=== PATIENT | male | born 1945 | race Caucasian/White ===

== ENCOUNTER 2017-12-20 16:34 | Inpatient (IN) | payer MEDICARE, SELFPAY ==
[2017-12-20] VITALS (22 sets, daily range): BP systolic 115–193; BP diastolic 72–114; PULSE 55–78; RESP 11–20; TEMP 36.1–36.7; O2SAT 94–100; BMI 28.2; BMI 27.9
--- NOTE | 2017-12-20 16:44 | EKG12_ITS ---
Test Reason : CP Blood Pressure : / mmHG Vent. Rate : 078 BPM Atrial Rate : 078 BPM P-R Int : 170 ms QRS Dur : 094 ms QT Int : 390 ms P-R-T Axes : 053 -31 085 degrees QTc Int : 444 ms Sinus rhythm with marked sinus arrhythmia Possible Left atrial enlargement Left axis deviation Inferior-posterior infarct , age undetermined Abnormal ECG Confirmed by ALICE STEELE ([id number]), film editor supervisor ADELE ROBERTSON ([id number]) on 12/27/2017 2:08:38 PM Referred By: HARDEEP/STACIE Confirmed By:ALICE STEELE
[2017-12-20 16:58] LABS: Absolute Lymphocyte Count 1.24 X10^3/ul (0.83-4.51); Absolute Neutrophil Count 6.2 X10^3/uL (2.0-7.7); Basophil# 0.02 X10^3/uL; Basophil% 0.2 % (0-1); Eosinophil# 0.06 X10^3/uL; Eosinophils% 0.7 % (0-5); Hematocrit 49.3 % (40-54); Hemoglobin 16.7 g/dl (13.0-16.5); Lymphocyte # 1.24 X10^3/ul (4.0); Lymphocyte % 14.9 % (19-41); Mean Corp Hgb Conc 33.9 g/gl (32-36); Mean Corpuscular Hgb 30.8 pg (27.0-32.0); Mean Corpuscular Volume 90.8 fL (80-94); Mean Platelet Vol. 10.7 fl (6.2-12.0); Monocyte# 0.86 X10^3/uL; Monocyte% 10.3 % (0-10); Neutrophil # 6.15 X10^3/uL (2.7-7.7); Neutrophil % 73.8 % (47-70); Platelet Count 197 K/mm3 (150-450); RBC Distribution Width SD 42.9 fl (35.1-43.9); Red Blood Count 5.43 M/mm3 (4.6-6.2); White Blood Count 8.3 K/mm3 (4.4-11.0)
[2017-12-20 17:14] LABS: POSITIVE COUNT NO; POSITIVE DIFFERENTIAL NO; POSITIVE MORPHOLOGY NO
[2017-12-20 17:16] LABS: Anion Gap 8 (5-15); BUN 22 mg/dL (7-18); BUN/Creat Ratio 14.2 RATIO (10-20); Calcium,Total 9.1 mg/dL (8.5-10.1); Chloride 108 mmol/L (98-107); Creatinine, Serum 1.55 mg/dL (0.70-1.30); EST Glomerular Filtration Rate 47 mL/min (>60); Est Glom Filt Rate - Afr Amer 57 mL/min (>60); Glucose 94 mg/dL (74-106); Potassium 4.2 mmol/L (3.5-5.1); Sodium Level 137 mmol/L (136-145)
--- NOTE | 2017-12-20 17:28 | ED.RN ---
trop 1.82 called from the lab. dr olmedo aware
[2017-12-20] MEDS: Aspirin 81 MG TAB.CHEW 324 MG PO (17:51)
--- NOTE | 2017-12-20 18:00 | PCM.HP.STD ---
<Manuela Mujica - Last Filed: 12/20/17 18:31> Problem List (1) Hypertension Status: Chronic (2) Malnutrition Status: Resolved (3) Hyperlipidemia Status: Chronic (4) Anemia Status: Resolved (5) Coronary artery disease Status: Chronic (6) Lumbar disc disease Status: Chronic (7) Major depression Status: Chronic (8) Chronic infection of right knee Status: Chronic History of Present Illness Date of Admission: 12/20/17 Chief Complaint: Chest pain. The patient is a 72 year old M who presents emergency room due to chest pain. Patient states chest pain began this morning with radiation to left arm and left shoulder blade. He denies associated dizziness, shortness of breath, diaphoresis, nausea. Patient states his symptoms felt similar to previous ID requiring CABG. Patient does not follow with cardiology. He reports previous CABG and stents. His most recent intervention was CABG in approximately 2008 at [place]. He has not followed with medication regimen or outpatient cardiology follow-up since that time. He states he has had routine testing prior to orthopedic surgery since that time which is reported to be normal. He has a past medical history of chronic right knee infection status post right zkbfs-mjv-oztg amputation, hypertension, hyperlipidemia, lumbar disc disease, depression, and CAD status post CABG as previously noted. Past Medical History Past Medical History (Chronic Problems): Chronic Problems Hypertension (Chronic) Hyperlipidemia (Chronic) Coronary artery disease (Chronic) Lumbar disc disease (Chronic) Major depression (Chronic) Chronic infection of right knee (Chronic) Allergies No Known Allergies Allergy (Verified 11/25/15 13:03) Home Medications: Ambulatory Orders Medication Instructions Recorded Lisinopril [Zestril] 10 mg PO DAILY 12/20/17 Metoprolol Tartrate 25 mg PO BID 12/20/17 Surgical History: coronary bypass surgery - 2008, - - L5 Diskectomy 1985. Right total knee arthroplasty. Right above-knee amputation. Psychiatric History: Depression Lives: With Family - With 87-year-old mother Smoking Status: Current every day smoker - Half pack per day Tobacco Use: Cigarettes Alcohol: None Drugs: None - *Family History Maternal History Items: No pertinent history Paternal History Items: Heart Disease Review of Systems Constitutional: Denies: Chills, Fever, Weight Change HEENT: Denies: Head Aches, Sinus Congestion, Sinus Drainage Cardiovascular: Reports: Chest Pain, Chest Pressure. Denies: Edema, Light Headedness, Palpitations, Syncope Respiratory: Denies: Cough, Shortness of breath at rest, Sputum production Gastrointestinal: Denies: Abdominal Pain, Nausea, Vomiting Genitourinary: Denies: Dysuria Musculoskeletal: Reports: - - Right rszwj-gnn-bkkp amputation with prosthesis. Denies: Joint Pain, Joint Tenderness Skin: Denies: Rash, Wounds Neurological: Denies: Numbness, Tingling, Focal weakness Psychiatric: Reports: Depression Hematologic/ Lymphatic: Denies: Easy Bruising, Easy Bleeding VTE Information - Inpt Only VTE Present on Admission: No VTE Mechan Device Prophylaxis: None VTE Pharm Prophylaxis ordered?: Yes - Physical Exam General: Alert, Oriented x3, Cooperative, No apparent distress HEENT: Atraumatic, PERRLA, EOMI, Normocephalic Neck: Supple, No JVD, Negative Carotid Bruits Lungs: Clear to auscultation, Diminished Cardiovascular: Regular rate, Regular Rhythm, Normal S1, Normal S2, No murmurs Abdomen: Bowel Sounds Present, Soft, Non Tender, Non-Distended Extremities: No clubbing, No cyanosis, No edema, Capillary Refill Less than 3 Seconds Skin: No rashes, No breakdown Musculoskeletal: No Tenderness to Palpation of Joints or Extremities, - - Right lower extremity prosthesis status post botvy-rbk-ipwe amputation Neurological: Cranial nerves II-XII grossly intact, Neuro grossly intact Psych/Mental Status: Normal Affect, Appropriate Vital Signs Temp Pulse Resp BP Pulse Ox 97.0 F L 71 16 176/91 H 98 12/20/17 16:37 12/20/17 17:44 12/20/17 17:44 12/20/17 17:44 12/20/17 17:44 Oxygen Flow Rate (L/min) 2 Oxygen Delivery Method Nasal Cannula Weight: 226 lb Body Mass Index (BMI) 28.2 Laboratory Tests Past 24 Hrs 12/20/17 12/20/17 16:48 16:48 WBC 8.3 RBC 5.43 Hgb 16.7 H Hct 49.3 MCV 90.8 MCH 30.8 MCHC 33.9 RDW 13.0 RDW Differential 42.9 Plt Count 197 MPV 10.7 Immature Gran % (Auto) 0.100 Neut % (Auto) 73.8 H Lymph % (Auto) 14.9 L Clarke % (Auto) 10.3 H Eos % (Auto) 0.7 Baso % (Auto) 0.2 Absolute Neuts (auto) 6.2 Absolute Lymphs (auto) 1.24 Total Counted Not Reportable Sodium 137 Potassium 4.2 Chloride 108 H Carbon Dioxide 21.0 Anion Gap 8 BUN 22 H Creatinine 1.55 H Estim Creat Clear Calc 53.00 Est GFR (MDRD) Af Amer 57 L Est GFR (MDRD) Non-Af 47 L BUN/Creatinine Ratio 14.2 Glucose 94 Calcium 9.1 Troponin I 1.820 H* Assessment/Plan All Active Problems Anemia (Resolved) Malnutrition (Resolved) 1. Chest pain/NSTEMI-initial troponin 1.8. Trend enzymes. Chest x-ray on admission showed no acute process. EKG sinus rhythm with no acute changes. Cardiology consulted from the ED. Placed on nitro drip. Given Plavix and aspirin. Plan for cardiac catheterization tomorrow. Repeat EKG with new onset or increased chest pain. 2. CAD status post CABG/PCI-not on aspirin, statin. 3. Hypertension-continue home lisinopril and metoprolol regimen. As needed labetalol for systolic greater than 160. 4. Hyperlipidemia-not on statin. Check fasting lipid panel in a.m. 5. Chronic infection of right knee status post-status post isjdf-qta-hito amputation with Dr. Chavez 03/04. 6. Chronic kidney disease stage III-creatinine at baseline. Continue to monitor. 7. Depression-not on home regimen. DVT prophylaxis-Lovenox sc. The patient was seen by TERRI Marin under the supervision of Dr. Gandara. <Rick Gandara F - Last Filed: 12/20/17 19:49> History of Present Illness The patient is a 72 year old M [] Past Medical History Allergies No Known Allergies Allergy (Verified 11/25/15 13:03) - Physical Exam Vital Signs Temp Pulse Resp BP Pulse Ox 98.0 F 68 20 H 163/105 H 100 12/20/17 18:45 12/20/17 19:12 12/20/17 19:00 12/20/17 19:00 12/20/17 19:00 Oxygen Flow Rate (L/min) 2 Oxygen Delivery Method Room Air Weight: 224 lb 10.417 oz Body Mass Index (BMI) 27.9 Assessment/Plan Addendum: Dr. Gandara I personally examined the patient and reviewed the chart. I agree with the above. Mr. De La Fuente is a 72-year-old male with a past medical history significant for coronary artery disease status post CABG and stent, hypertension, hyperlipidemia, right AKA, chronic kidney disease stage III. He presents with a one-day history of chest pain radiating to his left arm. In the ER he was found to have an elevated troponin of 1.8 with an unchanged baseline EKG. The ER discussed the case with cardiology who plans on a cardiac catheterization tomorrow. He was placed on a nitro drip for his chest pain in the ER as well as given a loading dose of Plavix and aspirin and a 1 mg/kg Lovenox. General: Alert, Oriented x3, Cooperative, No apparent distress HEENT: Atraumatic, EOMI, Normocephalic Oral: Moist Mucosa Neck: Supple, No JVD Lungs: Clear to auscultation, Normal air movement, No rhonchi, No wheeze, No rales Cardiovascular: Regular rate, Regular Rhythm, Normal S1, Normal S2, No murmurs Abdomen: Soft, Non Tender, Non-Distended, No Hepato-splenomegaly Extremities: No edema, Capillary Refill Less than 3 Seconds, RLE AKA Skin: No rashes, No breakdown Psych/Mental Status: Normal Affect, Appropriate 1. NSTEMI/CAD s/p stent and CABG at [place]/HTN/HLD - Troponin elevated to 1.8, will obtain serial enzymes - Nitro drip for pain - Plavix 300 mg Aspirin 325 mg , and lovenox 1mg/kg x1 tonight - Plan for cath in the am and NPO prior to procedure - Will need a statin prior to DC 2. CKD 3 - Will hold his lisinopril in the am since he will be receiving contrast - If no increase after the procedure, can restart lisinopril Diet: Cardiac then NPO DVT: Lovenox x1 Code Visit Inpatient E&M: 79728 Init Hosp L3
[2017-12-20] MEDS: Nitroglycerin Oint 1 INCH PACKET TRANSDERM. (18:05)
--- NOTE | 2017-12-20 18:05 | ED.VISSUMM ---
- ER Visit Summary Date of Service: 12/20/17 Chief Complaint: Acute chest pain History of Present Illness: The patient is a 72 M he was stents. Prior double bypass surgery and 2007 at [facility]. Patient has not had any stents since that time. Today he had chest pain midsternal radiating to his left arm at times. He denies any shortness of breath, nausea or diaphoresis. He really denies any significant recent exertional chest pain. He is not on any type of anticoagulation. Nor aspirin. Physical Examination: Well-appearing older male. Vital signs initial blood pressure 154 114. His pulse ox is 98% on 2 L no hypoxia. HEENT exam unremarkable. Neck nontender. Lungs clear to auscultation bilaterally. Heart regular rate and rhythm no murmur. Chest wall nontender. Abdomen soft nontender. He is moving all 4 extremities. Neurovascular intact. He has a right qbwip-qxs-ntyo at amputation with a prosthesis. Neurologically is awake alert with no focal motor deficits. Test Results: Chest x-ray normal cardiac silhouette normal mediastinum. Prior sternotomy. EKG sinus rhythm chronic changes but no acute change from the prior EKG from February 2017. CBC unremarkable. Chemistries unremarkable other than chronic renal insufficiency creatinine 1.5. Troponin is elevated at 1.82. Emergency Department Course and Treatment: Patient's history is consistent with cardiac chest pain. Going along with his elevated troponin. I spoke to Dr. Bhavin Eaton of interventional cardiology. Patient be started on nitro drip. Given p.o. Plavix. And aspirin. I also spoke to the hospitalist and he and Dr. Eaton will discuss further anticoagulation due to the patient's renal insufficiency. The patient be set up for cardiac catheterization for tomorrow. Treatment Plan: [] Disposition: Admit to the PCU. Impression: Acute chest pain with elevated troponin Acute coronary syndrome This note was generated with [employer] dictation software. It may contain incorrect words, spelling, and punctuation that were not noted in review of the chart prior to signing ED Disposition - Plan for ED Patient: Chief Complaint: Chest Pain Referrals: Capri Arita MD [Primary Care Provider] -
--- NOTE | 2017-12-20 18:11 | ED.DCSUM_ITS ---
- ER Visit Summary Date of Service: 12/20/17 Chief Complaint: Acute chest pain History of Present Illness: The patient is a 72 M he was stents. Prior double bypass surgery and 2007 at [facility]. Patient has not had any stents since that time. Today he had chest pain midsternal radiating to his left arm at times. He denies any shortness of breath, nausea or diaphoresis. He really denies any significant recent exertional chest pain. He is not on any type of anticoagulation. Nor aspirin. Physical Examination: Well-appearing older male. Vital signs initial blood pressure 154 114. His pulse ox is 98% on 2 L no hypoxia. HEENT exam unremarkable. Neck nontender. Lungs clear to auscultation bilaterally. Heart regular rate and rhythm no murmur. Chest wall nontender. Abdomen soft nontender. He is moving all 4 extremities. Neurovascular intact. He has a right xsmdq-yls-thwe at amputation with a prosthesis. Neurologically is awake alert with no focal motor deficits. Test Results: Chest x-ray normal cardiac silhouette normal mediastinum. Prior sternotomy. EKG sinus rhythm chronic changes but no acute change from the prior EKG from February 2017. CBC unremarkable. Chemistries unremarkable other than chronic renal insufficiency creatinine 1.5. Troponin is elevated at 1.82. Emergency Department Course and Treatment: Patient's history is consistent with cardiac chest pain. Going along with his elevated troponin. I spoke to Dr. Bhavin Eaton of interventional cardiology. Patient be started on nitro drip. Given p.o. Plavix. And aspirin. I also spoke to the hospitalist and he and Dr. Eaton will discuss further anticoagulation due to the patient's renal insufficiency. The patient be set up for cardiac catheterization for tomorrow. Treatment Plan: [] Disposition: Admit to the PCU. Impression: Acute chest pain with elevated troponin Acute coronary syndrome This note was generated with [employer] dictation software. It may contain incorrect words, spelling, and punctuation that were not noted in review of the chart prior to signing ED Disposition - Plan for ED Patient: Chief Complaint: Chest Pain Referrals: Capri Arita MD [Primary Care Provider] -
[2017-12-20] MEDS: Clopidogrel Bisulfate 300 MG Tablet PO (18:52)
[2017-12-20] MEDS: 0.9% NaCl Peripheral Flush Adult/Peds IV (18:52)
[2017-12-20] MEDS: Enoxaparin 100 MG/ML Syringe SC (20:23)
[2017-12-20] MEDS: Metoprolol Tartrate 25 MG Tablet PO (22:37)
[2017-12-21] VITALS (46 sets, daily range): BP systolic 85–160; BP diastolic 42–79; PULSE 43–82; RESP 11–23; TEMP 36.4–36.7; O2SAT 94–99
[2017-12-21 02:26] LABS: Absolute Lymphocyte Count 1.22 X10^3/ul (0.83-4.51); Absolute Neutrophil Count 4.5 X10^3/uL (2.0-7.7); Basophil# 0.02 X10^3/uL; Basophil% 0.3 % (0-1); Eosinophil# 0.13 X10^3/uL; Hematocrit 43.9 % (40-54); Hemoglobin 14.7 g/dl (13.0-16.5); Lymphocyte # 1.22 X10^3/ul (4.0); Lymphocyte % 18.7 % (19-41); Mean Corp Hgb Conc 33.5 g/gl (32-36); Mean Corpuscular Hgb 30.5 pg (27.0-32.0); Mean Corpuscular Volume 91.1 fL (80-94); Mean Platelet Vol. 10.2 fl (6.2-12.0); Monocyte# 0.67 X10^3/uL; Monocyte% 10.3 % (0-10); Neutrophil # 4.49 X10^3/uL (2.7-7.7); Neutrophil % 68.7 % (47-70); Platelet Count 172 K/mm3 (150-450); RBC Distribution Width CV 13.1 % (11.6-14.6); RBC Distribution Width SD 43.4 fl (35.1-43.9); Red Blood Count 4.82 M/mm3 (4.6-6.2); White Blood Count 6.5 K/mm3 (4.4-11.0)
[2017-12-21 02:27] LABS: POSITIVE COUNT NO; POSITIVE DIFFERENTIAL NO; POSITIVE MORPHOLOGY NO
[2017-12-21 02:35] LABS: International Normalized Ratio 1.1; Prothrombin Time (Protime)PT. 13.7 SECONDS (11.7-14.9)
[2017-12-21 02:36] LABS: Partial Thromboplast Time 35.5 Seconds (24.1-36.2)
[2017-12-21 02:53] LABS: Anion Gap 9 (5-15); BUN 20 mg/dL (7-18); BUN/Creat Ratio 14.4 RATIO (10-20); Calcium,Total 8.5 mg/dL (8.5-10.1); Chloride 109 mmol/L (98-107); Creatinine, Serum 1.39 mg/dL (0.70-1.30); EST Glomerular Filtration Rate 54 mL/min (>60); Est Glom Filt Rate - Afr Amer 65 mL/min (>60); Glucose 114 mg/dL (74-106); Potassium 3.9 mmol/L (3.5-5.1); Sodium Level 140 mmol/L (136-145)
--- NOTE | 2017-12-21 05:55 | EKG12_ITS ---
Test Reason : AM EKG Blood Pressure : / mmHG Vent. Rate : 056 BPM Atrial Rate : 056 BPM P-R Int : 162 ms QRS Dur : 096 ms QT Int : 472 ms P-R-T Axes : 029 -28 017 degrees QTc Int : 455 ms Sinus bradycardia RSR' or QR pattern in V1 suggests right ventricular conduction delay Minimal voltage criteria for LVH, may be normal variant T wave abnormality, consider anterolateral ischemia Abnormal ECG When compared with ECG of 20-DEC-2017 16:41, MANUAL COMPARISON REQUIRED, DATA IS UNCONFIRMED Confirmed by ALICE STEELE ([id number]), social media editor ADELE ROBERTSON ([id number]) on 12/27/2017 3:15:40 PM Referred By: CHRIS Confirmed By:ALICE STEELE
[2017-12-21] MEDS: Aspirin 81 MG TAB.CHEW PO (06:24)
[2017-12-21] MEDS: Clopidogrel Bisulfate 75 MG Tablet PO (06:24)
[2017-12-21] MEDS: DiphenhydrAMINE 25 MG Capsule 50 MG PO (11:12)
--- NOTE | 2017-12-21 11:13 | CASEMGMT ---
This RN CM to room to complete CM assessment and pt is being taken to the heart clinical laboratory scientist at this time. Will attempt again later. Earlene NELSON CM
--- NOTE | 2017-12-21 11:20 | PCM.CONS.C ---
Problem List (1) Tobacco abuse Status: Acute (2) Unstable angina Status: Acute (3) Chest pain Status: Acute (4) Non-STEMI (non-ST elevated myocardial infarction) Status: Acute (5) Hypertension Status: Chronic (6) Hyperlipidemia Status: Chronic (7) Coronary artery disease Status: Chronic Reason for Consult Date of Consultation: 12/21/17 Reason for Consultation: Chest pain, non-STEMI, coronary disease, tobacco abuse, hypertension, hypercholesterolemia History of Present Illness: The patient is a 72 year old M, [id number] smoker, currently smoking, with a history of hypertension, hypercholesterolemia, peripheral vascular disease, coronary artery disease status post angioplasty and stenting of his left circumflex system by Dr. Bernard at [facility] in 2005, with subsequent poor medical compliance and that he stopped his Plavix with return to [facility] in 2008 with recurrent chest pain. At that time he was found to have multivessel coronary disease with in-stent stenosis, and was referred for bypass surgery. At that time he underwent bypass surgery with a free CARCAMO to the LAD, a free radial to the PDA, saphenous vein graft to the obtuse marginal, and saphenous vein graft to the distal right coronary artery. The patient's symptoms at that time were substernal chest pressure and chest burning which completely resolved after his bypass. Unfortunately the patient continues to smoke about 1 pack of cigarettes per day. In 2014 the patient required a knee replacement surgery at which time he had a stress test which apparently was negative. He has not had a repeat catheterization since his bypass surgery. He underwent knee replacement surgery upon [facility] with subsequent wound infection requiring right AKA amputation. Over the last several weeks he has had what he describes as indigestion which is his anginal equivalent. This culminated into significant chest pain last evening around 8 PM at which time he sought medical attention at [facility]. An EKG was performed which showed normal sinus rhythm with subtle anterolateral ST segment depression. His initial troponin was 1.82. His chest pain was relieved with sublingual nitroglycerin. He was also found to be significantly hypertensive. He was placed on a nitroglycerin drip, loaded with 300 mg of Plavix, and his peak troponin is now 18. He is remained chest pain-free overnight. Past Medical History Allergies/Adverse Reactions: Allergies No Known Allergies Allergy (Verified 11/25/15 13:03) Home Medications: Ambulatory Orders Medication Instructions Recorded Lisinopril [Zestril] 10 mg PO DAILY 12/20/17 Metoprolol Tartrate 25 mg PO BID 12/20/17 Past Medical History (Chronic Problems): Chronic Problems Hypertension (Chronic) Hyperlipidemia (Chronic) Coronary artery disease (Chronic) Lumbar disc disease (Chronic) Major depression (Chronic) Chronic infection of right knee (Chronic) Surgical History: coronary bypass surgery - 2008, - - L5 Diskectomy 1985. Right total knee arthroplasty. Right above-knee amputation. Psychiatric History: Depression - *Family History Maternal History Items: No pertinent history Paternal History Items: Heart Disease Lives: With Family - With 87-year-old mother Smoking Status: Current every day smoker Tobacco Use: Cigarettes Alcohol: None Drugs: None Review of Systems - Review of Systems General: Denies: Fever, Night Sweats, Fatigue Cardiovascular: Reports: Chest Discomfort, Chest Discomfort at Rest. Denies: Shortness of Breath, Orthopnea, PND, Peripheral Edema, Palpitations, Lightheadedness, Dizziness, Near Syncope, Syncope Respiratory: Denies: Cough, Sputum Production, Hemoptysis Gastrointestinal: Denies: Hematemesis, Hematochezia, Melena Genitourinary: Denies: Dysuria, Hematuria Skin: Denies: Rash Subjectve: Patient laying in bed, no acute distress. Objective: Vital Signs Temp Pulse Resp BP Pulse Ox 98.0 F 50 L 14 105/66 96 12/21/17 09:00 12/21/17 11:01 12/21/17 10:00 12/21/17 10:00 12/21/17 10:00 Oxygen Flow Rate (L/min) 2 Oxygen Delivery Method Room Air Weight: 224 lb 10.417 oz Body Mass Index (BMI) 27.9 Intake and Output for Last 24 Hours 12/19/17 12/20/17 12/21/17 23:59 23:59 23:59 Intake Total 240 / 240 240 / 240 Output Total 450 / 450 300 / 300 Balance -210 / -210 -60 / -60 General: Awake, Alert, Oriented x 3 HEENT: PERRL, EOMI, Sclera Non Icteric Neck: Supple, Good ROM, No Lymph Node Enlargement Lungs: Clear to auscultation Cardiovascular: Regular Rhythm, Normal S1, Normal S2, No Murmurs, No Rubs, No Gallops Vascular: No Carotid Bruits, Normal Femoral Pulses, Normal Radial Pulses, Normal Dorsalis Pedal Pulse, Normal Posterior Tibial Pulses Abdomen: Bowel Sounds Present, Soft, Non Tender, No HSM, No Organomegaly Extremities: No Cyanosis, No Clubbing, No edema Neurological: No Focal Motor or Sensory Deficit 12/20/17 20:00: Troponin I 6.810 H* 12/20/17 22:56: Troponin I 12.500 H* 12/21/17 02:05: WBC 6.5, RBC 4.82, Hgb 14.7, Hct 43.9, MCV 91.1, MCH 30.5, MCHC 33.5, RDW 13.1, RDW Differential 43.4, Plt Count 172, MPV 10.2, Immature Gran % (Auto) 0.000, Neut % (Auto) 68.7, Lymph % (Auto) 18.7 L, [place] % (Auto) 10.3 H, Eos % (Auto) 2.0, Baso % (Auto) 0.3, Absolute Neuts (auto) 4.5, Total Counted Not Reportable 12/21/17 02:05: Sodium 140, Potassium 3.9, Chloride 109 H, Carbon Dioxide 22.0, Anion Gap 9, BUN 20 H, Creatinine 1.39 H, Est GFR (MDRD) Af Amer 65, Est GFR (MDRD) Non-Af 54 L, BUN/Creatinine Ratio 14.4, Glucose 114 H, Calcium 8.5 12/21/17 02:05: Troponin I 17.200 H* 12/21/17 02:05: PT 13.7, INR 1.1, APTT 35.5 12/21/17 05:05: Troponin I 18.000 H* Rhythm: EKG: As above ECHO: Pending Stress Test: Cardiac Cath: Pending PCI: CT Surgery: Holter monitor: EPS: PPM: CXR: Chest CT Scan: Assessment/Plan 1. Non-STEMI: The patient presents with recurrent anginal symptoms, subtle dynamic EKG changes with anterolateral ischemia, positive troponin to 1.8 maximizing at 18.0. Patient had challenges with compliance with Plavix therapy in 2005 mostly due to cost issues, but he has pledged to continue dual antiplatelet therapy should this be necessary. I recommended the patient undergo repeat catheterization with graft angiography to determine if he has any reversible lesions that could benefit from intervention or angioplasty. Patient has an excellent right femoral pulse despite his right AKA which appear to be due to an infectious process anyhow. I believe we can proceed with left heart catheterization via the right femoral artery. In the meantime we will continue baby aspirin, Plavix, antihypertensive therapy with Lopressor 25 mg p.o. twice daily. 2D echo is pending. He was quite hypertensive when he came in last evening and to that and would recommend Hyzaar 25/12.5 mg p.o. daily to assist with diastolic hypertension. 2. Hyperlipidemia: Patient was on no antilipid therapy apparently at home, recommend obtaining a fasting lipid profile. Recommend starting Lipitor 80 mg p.o. nightly. His LDL should be less than 70. 3. Tobacco cessation: I had a long and thorough discussion with the patient regarding tobacco cessation and strongly recommended discontinuation of all tobacco products. 4. Thank you very much for the opportunity to participate in the cardiac care of your patient. Consultation time took place between 930 and 10:05 AM. Code Visit Inpatient E&M: 91062 Init Hosp L2
[2017-12-21 12:09] LABS: Cholesterol 172 mg/dL (200); High Density Lipoprotein 31 mg/dL; Triglycerides 146 mg/dL; Very Low Density Lipoprotein 29 mg/dL (5-40)
--- NOTE | 2017-12-21 12:47 | NURSING ---
report called to Keturah NELSON in ICU
--- NOTE | 2017-12-21 12:52 | PCM.PN.HOSP ---
Patient Problems: Active and Suspected Problems Tobacco abuse (Acute) Unstable angina (Acute) Chest pain (Acute) Non-STEMI (non-ST elevated myocardial infarction) (Acute) Subjective: Patient was seen and examined. He is status post cardiac cath with HARLAN to the mid OM #1, ballooning to ostial OM #1 for stent restenosis. Seen in ICU post cardiac cath. Denied any chest pain no dizziness or shortness of breath. Following post-cath procedures Objective: Physical Exam General: Alert, Oriented x3, Cooperative, No apparent distress HEENT: Atraumatic, PERRLA, EOMI, Normocephalic Neck: Supple, No JVD, Negative Carotid Bruits Lungs: Clear to auscultation, Diminished Cardiovascular: Regular rate, Regular Rhythm, Normal S1, Normal S2, No murmurs Abdomen: Bowel Sounds Present, Soft, Non Tender, Non-Distended, right groin catheter in situ, groin precautions ongoing Extremities: No clubbing, No cyanosis, No edema, Capillary Refill Less than 3 Seconds Skin: No rashes, No breakdown Musculoskeletal: No Tenderness to Palpation of Joints or Extremities, - - Right lower extremity prosthesis status post [id number] amputation Neurological: Cranial nerves II-XII grossly intact, Neuro grossly intact Psych/Mental Status: Normal Affect, Appropriate Vitals/I&O's: Vital Signs Temp Pulse Resp BP Pulse Ox 98.0 F 50 L 15 105/68 97 12/21/17 09:00 12/21/17 11:01 12/21/17 11:00 12/21/17 11:00 12/21/17 11:00 Oxygen Flow Rate (L/min) 2 Oxygen Delivery Method Room Air Weight: 101.9 kg Body Mass Index (BMI) 27.9 Intake and Output for Last 24 Hours 12/19/17 12/20/17 12/21/17 23:59 23:59 23:59 Intake Total 240 / 240 240 / 240 Output Total 450 / 450 300 / 300 Balance -210 / -210 -60 / -60 Laboratory Results 12/20/17 20:00: Troponin I 6.810 H* 12/20/17 22:56: Troponin I 12.500 H* 12/21/17 02:05: WBC 6.5, RBC 4.82, Hgb 14.7, Hct 43.9, MCV 91.1, MCH 30.5, MCHC 33.5, RDW 13.1, RDW Differential 43.4, Plt Count 172, MPV 10.2, Immature Gran % (Auto) 0.000, Neut % (Auto) 68.7, Lymph % (Auto) 18.7 L, Esmeralda % (Auto) 10.3 H, Eos % (Auto) 2.0, Baso % (Auto) 0.3, Absolute Neuts (auto) 4.5, Absolute Lymphs (auto) 1.22, Total Counted Not Reportable 12/21/17 02:05: Sodium 140, Potassium 3.9, Chloride 109 H, Carbon Dioxide 22.0, Anion Gap 9, BUN 20 H, Creatinine 1.39 H, Estim Creat Clear Calc 59.10, Est GFR (MDRD) Af Amer 65, Est GFR (MDRD) Non-Af 54 L, BUN/Creatinine Ratio 14.4, Glucose 114 H, Calcium 8.5 12/21/17 02:05: Troponin I 17.200 H* 12/21/17 02:05: PT 13.7, INR 1.1, APTT 35.5 12/21/17 05:05: Troponin I 18.000 H* 12/21/17 05:05: Triglycerides 146, Cholesterol 172, LDL Cholesterol 112, VLDL Cholesterol 29, HDL Cholesterol 31 L Current Medications Atorvastatin Calcium (Lipitor) 80 mg PO QHS [facility] Hydrochlorothiazide (Hydrochlorothiazide) 12.5 mg PO DAILY [facility] Nitroglycerin/Dextrose 25 mg/ (N/A) 250 mls @ 3 mls/hr IV .[id number] [facility] PRN Reason: 5 MCG/MIN Last Admin: 12/20/17 18:52 Dose: 3 mls/hr Sodium Chloride () 1,000 mls @ 0 mls/hr IV .Q0M ARNA[facility] PRN Reason: KVO Losartan Potassium (Cozaar) 50 mg PO DAILY [facility] Magnesium Hydroxide (Milk Of Magnesia) 30 ml PO DAILY PRN PRN Reason: Constipation Metoprolol Tartrate (Lopressor (Beta García)) 25 mg PO BID ARNA[facility] Last Admin: 12/21/17 11:01 Dose: Not Given Sodium Chloride () 5 - 30 ml IV UD PRN PRN Reason: SALINE FLUSH Last Admin: 12/20/17 18:52 Dose: 10 ml Medical Necessity - Tobacco Use Smoking Status: Current every day smoker Tobacco Use: Cigarettes Assessment/Plan All Active Problems Tobacco abuse (Acute) Unstable angina (Acute) Chest pain (Acute) Non-STEMI (non-ST elevated myocardial infarction) (Acute) Anemia (Resolved) Malnutrition (Resolved) 72-year-old male with past medical history of CAD status post CABG admitted on 12/20/2017 with chest pain radiating down his left arm and left shoulder, found to have NSTEMI 1. Acute NSTEMI, MARK score 6, history of CAD status post CABG and stent. Findings in cardiac cath today included patent grafts, 85% occlusion of the mid obtuse margin now #1 status post HARLAN, ostia OM #1 in-stent restenosis status post balloon angioplasty, on statin, aspirin, plavix 2. CKD stage III, Creatinine has been fluctuating, improved compared to admission and also close to his baseline, continue to trend BMP 3. Hypertension, controlled, continue home medication 4. Hyperlipidemia, lipid profile this morning showed triglycerides 146, total cholesterol 172, LDL 112, HDL 31, at goal. LDL not at goal, on atorvastatin 80 mg daily 5. PAD status post right AKA, on aspirin, Plavix, statin 6. Chronic smoker, advised to quit 7. DVT PPx- SCDs -will resume Lovenox from tomorrow Code Visit Inpatient E&M: 29309 Subs Hosp L2
[2017-12-21 13:00] LABS: ACT Activated Clotting Time 208 sec (74-137)
--- NOTE | 2017-12-21 13:31 | EKG12_ITS ---
Test Reason : POST PCI Blood Pressure : / mmHG Vent. Rate : 048 BPM Atrial Rate : 048 BPM P-R Int : 156 ms QRS Dur : 094 ms QT Int : 478 ms P-R-T Axes : 017 -35 064 degrees QTc Int : 427 ms Sinus bradycardia Left axis deviation ,LAHB T wave abnormality, consider anterior ischemia Abnormal ECG When compared with ECG of 21-DEC-2017 05:37, MANUAL COMPARISON REQUIRED, DATA IS UNCONFIRMED Confirmed by ALICE STEELE ([id number]), book or script editor ADELE ROBERTSON ([id number]) on 12/27/2017 3:12:11 PM Referred By: CEDRIC Confirmed By:ALICE STEELE
--- NOTE | 2017-12-21 13:49 | CRPHASE1 ---
Patient Data/Charges Phase II Referral:: [facility] Risk Factors/Lifestyle Laboratory Values: Cardiac Rehab Phase I Labs Triglycerides 146 mg/dL (-199) 12/21/17 05:05 Cholesterol 172 mg/dL (200) 12/21/17 05:05 LDL Cholesterol 112 mg/dL (0-130) 12/21/17 05:05 HDL Cholesterol 31 mg/dL (40-) L 12/21/17 05:05 Phase I Education Given On:: Winder, Nutrition, Antiplatelet medication, CHF, Smoking cessation, Diabetes - Type I, Diabetes - Type II Knowledge of Condition:: Yes
--- NOTE | 2017-12-21 13:51 | CRPH1.INSTRU ---
General Education CAD and cardiac anatomy and function:: Patient communicates acknowledgment Explanation of diagnoses and procedures:: Patient communicates acknowledgment Sign/Symptoms of MA:: Patient communicates acknowledgment Antiplatelet therapy: Patient communicates acknowledgment Proper use of NTG-SL: Not instructed Emergency procedures and activation of EMS: Patient communicates acknowledgment Compliance of all prescribed medications: Patient communicates acknowledgment Smoking Nicotine/Smoking Response Code:: Not instructed Dyslipidemia Dyslipidemia Response Code:: Not instructed Overweight/Obesity Overweight/Obesity:: Not instructed Hypertension Recommendations Include:: Maintain BP <130/85, BP <130/80 if diabetic, DASH dietary guidelines, Decrease/maintain normal body weight, Moderation of ETOH Heart Disease Heart Disease Response Code:: Not instructed Diabetes Diabetes:: Not instructed Metabolic Syndrome Metabolic Syndrome Response Code:: Not instructed Sedentary Sedentary Response Code:: Not instructed
[2017-12-21] MEDS: 0.9% Normal Saline 1,000 ML 150 ML IV (14:11)
[2017-12-21 15:20] LABS: ACT Activated Clotting Time 147 sec (74-137)
[2017-12-21] MEDS: Losartan Potassium 50 MG Tablet PO (16:36)
[2017-12-21] MEDS: HYDROCHLOROTHIAZIDE 12.5 MG CAPSULE PO (16:37)
[2017-12-21] MEDS: Atorvastatin Calcium 80 MG Tablet PO (22:24)
[2017-12-21] MEDS: Metoprolol Tartrate 25 MG Tablet PO (22:24)
--- NOTE | 2017-12-21 22:41 | NURSING ---
Pt up to bathroom and back to bed at 2140. Cath dressing to right groin c/d/i. No bleeding or hematoma noted. Pt tolerated ambulation well.
[2017-12-22] VITALS (14 sets, daily range): BP systolic 96–130; BP diastolic 56–81; PULSE 44–68; RESP 15–26; TEMP 36.1–36.8; O2SAT 94–99
[2017-12-22 04:36] LABS: Hematocrit 44.7 % (40-54); Hemoglobin 14.9 g/dl (13.0-16.5); Mean Corp Hgb Conc 33.3 g/gl (32-36); Mean Corpuscular Hgb 30.5 pg (27.0-32.0); Mean Corpuscular Volume 91.4 fL (80-94); Mean Platelet Vol. 10.6 fl (6.2-12.0); Platelet Count 168 K/mm3 (150-450); RBC Distribution Width CV 13.2 % (11.6-14.6); RBC Distribution Width SD 43.8 fl (35.1-43.9); Red Blood Count 4.89 M/mm3 (4.6-6.2); White Blood Count 6.7 K/mm3 (4.4-11.0)
[2017-12-22 04:37] LABS: Scan Indicated on CBC? Y/N NO
[2017-12-22 05:00] LABS: Anion Gap 9 (5-15); BUN 19 mg/dL (7-18); BUN/Creat Ratio 13.5 RATIO (10-20); Calcium,Total 8.5 mg/dL (8.5-10.1); Chloride 107 mmol/L (98-107); Creatinine, Serum 1.41 mg/dL (0.70-1.30); EST Glomerular Filtration Rate 53 mL/min (>60); Est Glom Filt Rate - Afr Amer 64 mL/min (>60); Estimated Creatinine Clearance 58.26 ml/min; Glucose 84 mg/dL (74-106); Potassium 4.2 mmol/L (3.5-5.1); Sodium Level 140 mmol/L (136-145)
--- NOTE | 2017-12-22 08:55 | PCM.PN.HOSP ---
Patient Problems: Active and Suspected Problems Tobacco abuse (Acute) Unstable angina (Acute) Chest pain (Acute) Non-STEMI (non-ST elevated myocardial infarction) (Acute) Subjective: Patient was seen and examined. No acute events overnight. Denies chest pain, dizziness or palpitations. No acute events on Telemetry. Objective: Physical Exam General: Alert, Oriented x3, Cooperative, No apparent distress HEENT: Atraumatic, PERRLA, EOMI, Normocephalic Neck: Supple, No JVD, Negative Carotid Bruits Lungs: Clear to auscultation, Diminished Cardiovascular: Regular rate, Regular Rhythm, Normal S1, Normal S2, No murmurs Abdomen: Bowel Sounds Present, Soft, Non Tender, Non-Distended, right groin catheter is clean, dry, dressing is intact. Extremities: No clubbing, No cyanosis, No edema, Capillary Refill Less than 3 Seconds Skin: No rashes, No breakdown Musculoskeletal: No Tenderness to Palpation of Joints or Extremities, - - Right lower extremity prosthesis status post [id number] amputation Neurological: Cranial nerves II-XII grossly intact, Neuro grossly intact Psych/Mental Status: Normal Affect, Appropriate Vitals/I&O's: Vital Signs Temp Pulse Resp BP Pulse Ox 97.7 F L 54 L 18 126/73 H 96 12/22/17 08:00 12/22/17 08:00 12/22/17 08:00 12/22/17 08:00 12/22/17 08:00 Oxygen Flow Rate (L/min) 2 Oxygen Delivery Method Room Air Weight: 101.9 kg Body Mass Index (BMI) 27.9 Intake and Output for Last 24 Hours 12/20/17 12/21/17 12/22/17 23:59 23:59 23:59 Intake Total 240 / 240 1420 / 1420 120 / 120 Output Total 450 / 450 1000 / 1000 200 / 200 Balance -210 / -210 420 / 420 -80 / -80 Laboratory Results 12/21/17 05:05: Triglycerides 146, Cholesterol 172, LDL Cholesterol 112, VLDL Cholesterol 29, HDL Cholesterol 31 L 12/21/17 12:40: Activated Clotting Time 208 H 12/21/17 15:10: Activated Clotting Time 147 H 12/22/17 04:28: Sodium 140, Potassium 4.2, Chloride 107, Carbon Dioxide 24.0, Anion Gap 9, BUN 19 H, Creatinine 1.41 H, Estim Creat Clear Calc 58.26, Est GFR (MDRD) Af Amer 64, Est GFR (MDRD) Non-Af 53 L, BUN/Creatinine Ratio 13.5, Glucose 84, Calcium 8.5 12/22/17 04:28: WBC 6.7, RBC 4.89, Hgb 14.9, Hct 44.7, MCV 91.4, MCH 30.5, MCHC 33.3, RDW 13.2, RDW Differential 43.8, Plt Count 168, MPV 10.6 Current Medications Acetaminophen (Tylenol) 650 mg PO Q6H PRN PRN PRN Reason: Mild Pain (0-2/10) Aspirin (Aspirin, Baby) 81 mg PO DAILY@0800 [facility] Atorvastatin Calcium (Lipitor) 80 mg PO QHS [facility] Last Admin: 12/21/17 22:24 Dose: 80 mg Atropine Sulfate () 0.5 mg IV UD PRN PRN Reason: HR <50 bpm Clopidogrel Bisulfate (Plavix) 75 mg PO DAILY [facility] Heparin Sodium (Beef Lung) (Heparin 500 Unit/5 Ml (100/Ml)) 500 unit IV UD PRN PRN Reason: HEPARIN FLUSH Hydrochlorothiazide (Hydrochlorothiazide) 12.5 mg PO DAILY [facility] Last Admin: 12/21/17 16:37 Dose: 12.5 mg Sodium Chloride () 1,000 mls @ 0 mls/hr IV .Q0M [facility] PRN Reason: KVO Labetalol HCl (Trandate) 5 mg IV X1 PRN PRN Reason: SBP > 160 when pulling sheath Lorazepam (Ativan) 1 mg PO Q6H PRN PRN PRN Reason: BACK SPASMS/ANXIETY Losartan Potassium (Cozaar) 50 mg PO DAILY [facility] Last Admin: 12/21/17 16:36 Dose: 50 mg Magnesium Hydroxide (Milk Of Magnesia) 30 ml PO DAILY PRN PRN Reason: Constipation Metoclopramide HCl (Reglan) 5 mg IV Q6H PRN PRN Reason: NAUSEA/VOMITING Metoprolol Tartrate (Lopressor (Beta García)) 25 mg PO BID [facility] Last Admin: 12/21/17 22:24 Dose: 25 mg Morphine Sulfate () 2 mg IV Q4H PRN PRN PRN Reason: Mild back pain (0-2/10) Sodium Chloride () 5 - 30 ml IV UD PRN PRN Reason: SALINE FLUSH Last Admin: 12/20/17 18:52 Dose: 10 ml Sodium Chloride () 500 ml IV BOLUS PRN PRN Reason: VASO-VAGAL PROTOCOL Medical Necessity - Tobacco Use Smoking Status: Current every day smoker Tobacco Use: Cigarettes Assessment/Plan All Active Problems Tobacco abuse (Acute) Unstable angina (Acute) Chest pain (Acute) Non-STEMI (non-ST elevated myocardial infarction) (Acute) Anemia (Resolved) Malnutrition (Resolved) 72-year-old male with past medical history of CAD status post CABG admitted on 12/20/2017 with chest pain radiating down his left arm and left shoulder, found to have NSTEMI 1. Acute NSTEMI, MARK score 6, history of CAD status post CABG and stent. Findings in cardiac cath today included patent grafts, 85% occlusion of the mid obtuse margin now #1 status post HARLAN, ostia OM #1 in-stent restenosis status post balloon angioplasty, on statin, aspirin, plavix, beta-garcía 2. CKD stage III, Creatinine has been fluctuating, remains close to his baseline. 3. Hypertension, controlled, continue home medication 4. Hyperlipidemia, lipid profile this morning showed triglycerides 146, total cholesterol 172, LDL 112, HDL 31, at goal. LDL not at goal, on atorvastatin 80 mg daily 5. PAD status post right AKA, on aspirin, Plavix, statin 6. Chronic smoker, advised to quit 7. DVT PPx- SCDs 8. Disposition: Will be Dc today Code Visit Inpatient E&M: [id number] Subs Hosp L2
[2017-12-22] MEDS: Aspirin 81 MG TAB.CHEW PO (09:28)
[2017-12-22] MEDS: Metoprolol Tartrate 25 MG Tablet PO (09:29)
[2017-12-22] MEDS: Losartan Potassium 50 MG Tablet PO (09:29)
[2017-12-22] MEDS: Clopidogrel Bisulfate 75 MG Tablet PO (09:29)
[2017-12-22] MEDS: HYDROCHLOROTHIAZIDE 12.5 MG CAPSULE PO (09:29)
--- NOTE | 2017-12-22 09:35 | PCM.DC ---
- Discharge Diagnoses Current Active Problems: Current Active and Chronic Problems Tobacco abuse (Acute) Unstable angina (Acute) Chest pain (Acute) Non-STEMI (non-ST elevated myocardial infarction) (Acute) Reason(s) for Visit for Discharge Instructions: Chest pain You will use the following diet at home:: Cardiac Your food should be the consistency of: Regular Your liquids should be the consistency of: Regular/Thin Discharge Activity: Return to Normal Activity Additional Instructions: Follow-up with Dr. Eaton and cardiac rehab as scheduled. Continue to take all your meds as scheduled. Follow-up with your PCP for blood draw and follow-up in 1-2 weeks. Allergies/Adverse Reactions: Allergies No Known Allergies Allergy (Verified 11/25/15 13:03) Medications to take at Discharge Metoprolol Tartrate 25 mg PO BID 12/20/17 Aspirin [Aspirin, Baby] 81 mg PO DAILY@0800 #30 tab.chew 12/22/17 Atorvastatin Calcium [Lipitor] 80 mg PO QHS #30 tab 12/22/17 Clopidogrel Bisulfate [Plavix] 75 mg PO DAILY #30 tab 12/22/17 Hydrochlorothiazide 12.5 mg PO DAILY #30 cap 12/22/17 Losartan Potassium [Cozaar] 50 mg PO DAILY #30 tab 12/22/17 The following prescriptions were given: Aspirin [Aspirin, Baby] 81 mg PO DAILY@0800 #30 tab.chew Atorvastatin Calcium [Lipitor] 80 mg PO QHS #30 tab Clopidogrel Bisulfate [Plavix] 75 mg PO DAILY #30 tab Hydrochlorothiazide 12.5 mg PO DAILY #30 cap Losartan Potassium [Cozaar] 50 mg PO DAILY #30 tab Orders to be completed after discharge: Basic Metabolic Profile (BMP) Time Frame: 1 Week, Location: Laboratory Primary Care Physician: Capri Arita MD [Primary Care Provider] - Please follow up with your Primary Care Physician in: within 1-2 weeks Test Results: Test results from this visit will be discussed in further detail at your follow-up appointment, if applicable. Please Follow Up With: Brant Eaton MD When: within 2 weeks Proposed Discharge Date: 12/22/17
--- NOTE | 2017-12-22 09:46 | PCM.PN.CARD ---
Subjectve: Patient feeling much better today, absolutely no chest pain. Telemetry showed normal sinus rhythm. EKG shows normal sinus rhythm, no acute changes. Hemoglobin and creatinine are within nominal limits. His right groin is clean/dry/intact without evidence of thrills, bruits or hematoma. Patient is status post right-sided AKA. Objective: Vital Signs Temp Pulse Resp BP Pulse Ox 97.7 F L 63 26 H 112/58 L 99 12/22/17 08:00 12/22/17 09:29 12/22/17 09:00 12/22/17 09:29 12/22/17 09:00 Oxygen Flow Rate (L/min) 2 Oxygen Delivery Method Room Air Weight: 224 lb 10.417 oz Body Mass Index (BMI) 27.9 Intake and Output for Last 24 Hours 12/20/17 12/21/17 12/22/17 23:59 23:59 23:59 Intake Total 240 / 240 1420 / 1420 120 / 120 Output Total 450 / 450 1000 / 1000 200 / 200 Balance -210 / -210 420 / 420 -80 / -80 General: Awake, Alert, Oriented x 3 HEENT: PERRL, EOMI, Sclera Non Icteric Neck: Supple, Good ROM, No Lymph Node Enlargement Lungs: Clear to auscultation Cardiovascular: Regular Rhythm, Normal S1, Normal S2, No Murmurs, No Rubs, No Gallops Vascular: No Carotid Bruits, Normal Femoral Pulses, Normal Radial Pulses, Normal Dorsalis Pedal Pulse, Normal Posterior Tibial Pulses Abdomen: Bowel Sounds Present, Soft, Non Tender, No HSM, No Organomegaly Extremities: No Cyanosis, No Clubbing, No edema Neurological: No Focal Motor or Sensory Deficit 12/21/17 05:05: Triglycerides 146, Cholesterol 172, LDL Cholesterol 112, VLDL Cholesterol 29, HDL Cholesterol 31 L 12/22/17 04:28: Sodium 140, Potassium 4.2, Chloride 107, Carbon Dioxide 24.0, Anion Gap 9, BUN 19 H, Creatinine 1.41 H, Est GFR (MDRD) Af Amer 64, Est GFR (MDRD) Non-Af 53 L, BUN/Creatinine Ratio 13.5, Glucose 84, Calcium 8.5 12/22/17 04:28: WBC 6.7, RBC 4.89, Hgb 14.9, Hct 44.7, MCV 91.4, MCH 30.5, MCHC 33.3, RDW 13.2, RDW Differential 43.8, Plt Count 168, MPV 10.6 Rhythm: EKG: ECHO: Stress Test: Cardiac Cath: PCI: CT Surgery: Holter monitor: EPS: PPM: CXR: Chest CT Scan: Medical Necessity - Tobacco Use Smoking Status: Current every day smoker Tobacco Use: Cigarettes Assessment/Plan 1. Non-STEMI: The patient presents with recurrent anginal symptoms, subtle dynamic EKG changes with anterolateral ischemia, positive troponin to 1.8 maximizing at 18.0. Patient had challenges with compliance with Plavix therapy in 2005 mostly due to cost issues, but he has pledged to continue dual antiplatelet therapy should this be necessary. Patient underwent diagnostic left heart catheterization and graft angiography yesterday which demonstrated widely patent grafts, a critical lesion and a nongrafted obtuse marginal branch with additional in-stent restenosis in the ostial portion of the obtuse marginal branch. Patient underwent successful angioplasty and drug-eluting stent of his OM #1 with a 2.25X 12 Promus Synergy stent, as well as balloon angioplasty and angioscope of his proximal obtuse marginal in-stent restenosis with an excellent result. Patient feels much better today. No additional testing needed at this time. In the meantime we will continue baby aspirin, Plavix, antihypertensive therapy with Lopressor 25 mg p.o. twice daily. 2D echo is pending. He was quite hypertensive when he came in last evening and to that and would recommend Hyzaar 25/12.5 mg p.o. daily to assist with diastolic hypertension. Blood pressure is much better today. 2. Hyperlipidemia: Patient was on no antilipid therapy apparently at home, recommend obtaining a fasting lipid profile. Recommend starting Lipitor 80 mg p.o. nightly. His LDL should be less than 70. 3. Tobacco cessation: I had a long and thorough discussion with the patient regarding tobacco cessation and strongly recommended discontinuation of all tobacco products. 4. Thank you very much for the opportunity to participate in the cardiac care of your patient. C patient may be discharged home. Discussed with Dr. Lucia. Patient to follow-up with Dr. Eaton. Code Visit Inpatient E&M: [id number] Subs Hosp L2
--- NOTE | 2017-12-22 09:53 | PCM.DC.SUM ---
Discharge Date and Diagnosis Date of Admission: 12/20/17 Date of Discharge: 12/22/17 - Primary Discharge Diagnosis Active and Suspected Problems Tobacco abuse (Acute) Unstable angina (Acute) Chest pain (Acute) Non-STEMI (non-ST elevated myocardial infarction) (Acute) - Secondary Discharge Diagnosis Chronic Problems Stented coronary artery (Chronic 12/21/17) PTCA/HARLAN of mid OM1 with 2.25 X12 Promus Synergy; PCI and PTCA to ostial OM1 for in-stent restenosis Hypertension (Chronic) Hyperlipidemia (Chronic) Coronary artery disease (Chronic) PTCA/HARLAN of mid OM1 with 2.25 X12 Promus Synergy; PCI and PTCA to ostial OM1 for in-stent restenosis Lumbar disc disease (Chronic) Major depression (Chronic) Chronic infection of right knee (Chronic) Hospital Course and Treatment Imaging Results: Clinical Impression(s) from Imaging Studies Chest X-Ray 12/20/17 16:44 IMPRESSION: No acute disease Electronically Signed: Adilson Jaramillo MD at 17:46 EDT , Service support , Cardiology Operations: None Procedures: Cardiac catheterization Summary of Care Provided: 72-year-old male with past medical history of CAD status post CABG admitted on 12/20/2017 with chest pain radiating down his left arm and left shoulder, found to have NSTEMI 1. Acute NSTEMI, MARK score 6, history of CAD status post CABG and stent. Findings in cardiac cath were patent grafts, 85% occlusion of the mid obtuse margin #1 status post HARLAN, ostia OM #1 in-stent restenosis status post balloon angioplasty. He was managed post-cath in ICU without any complications. He was discharged on statin, aspirin, plavix, beta-garcía. He will follow-up with cardiac rehab and cardiology in the outpatient. 2. CKD stage III, Creatinine was fluctuating, remains close to his baseline, will need repeated in the outpatient. 3. Hypertension, controlled 4. Hyperlipidemia, lipid profile in this admission showed triglycerides 146, total cholesterol 172, LDL 112, HDL 31, at goal. LDL not at goal, on atorvastatin 80 mg daily 5. PAD status post right AKA, on aspirin, Plavix, statin 6. Chronic smoker, advised to quit Discharge Diet: Low fat/ Low Cholesterol, 2000 mg Sodium Diet Discharge Activity: Return to Normal Activity Home Medications: Medications to take at Discharge Metoprolol Tartrate 25 mg PO BID 12/20/17 Aspirin [Aspirin, Baby] 81 mg PO DAILY@0800 #30 tab.chew 12/22/17 Atorvastatin Calcium [Lipitor] 80 mg PO QHS #30 tab 12/22/17 Clopidogrel Bisulfate [Plavix] 75 mg PO DAILY #30 tab 12/22/17 Hydrochlorothiazide 12.5 mg PO DAILY #30 cap 12/22/17 Losartan Potassium [Cozaar] 50 mg PO DAILY #30 tab 12/22/17 Following Prescrptions Were Given to Patient: Aspirin [Aspirin, Baby] 81 mg PO DAILY@0800 #30 tab.chew Atorvastatin Calcium [Lipitor] 80 mg PO QHS #30 tab Clopidogrel Bisulfate [Plavix] 75 mg PO DAILY #30 tab Hydrochlorothiazide 12.5 mg PO DAILY #30 cap Losartan Potassium [Cozaar] 50 mg PO DAILY #30 tab Primary Care Physician: Capri Arita MD [Primary Care Provider] - Please follow up with your Primary Care Physician in: within 1-2 weeks Please Follow Up With: Brant Eaton MD When: within 2 weeks Medical Necessity - Tobacco Use Smoking Status: Current every day smoker Tobacco Use: Cigarettes Meaningful Use Info Meaningful Use Diagnoses (Choose all that apply): AMI - AMI Aspirin given w/in 24hrs of arrival?: Yes ASA at discharge?: Yes Statins at discharge?: Yes Bruce/ARB at discharge?: Yes Beta García at discharge?: Yes Done w/ Acute NV measure.: Yes Code Visit Inpatient E&M: 54432 Disch Hosp
--- NOTE | 2017-12-22 10:00 | EKG12_ITS ---
Test Reason : AM EKG Blood Pressure : / mmHG Vent. Rate : 052 BPM Atrial Rate : 052 BPM P-R Int : 154 ms QRS Dur : 098 ms QT Int : 456 ms P-R-T Axes : 004 -33 074 degrees QTc Int : 424 ms Sinus bradycardia Left axis deviation , LAHB T wave abnormality, consider anterior ischemia Abnormal ECG When compared with ECG of 21-DEC-2017 13:12, MANUAL COMPARISON REQUIRED, DATA IS UNCONFIRMED Confirmed by ALICE STEELE ([id number]), newspaper copy editor ADELE ROBERTSON ([id number]) on 12/27/2017 3:12:47 PM Referred By: CEDRIC Confirmed By:ALICE STEELE
--- NOTE | 2017-12-22 10:12 | PCM.PN.BLA ---
Progress Note Patient will be scheduled for a post hospital follow-up with [facility] on 01/03/2018 at 9:00 AM with Gerber Marin Nurse Practitioner.
--- NOTE | 2017-12-22 10:35 | CASEMGMT ---
SW spoke w/RN as pt does not have prescription coverage. She called the [facility] in [place], the cost for pt's prescriptions is $98. SW spoke w/pt in room, he states can afford the $98. SW did give pt information on signing up for a part D w/Medicare, and other medication assistance programs. Pt states is aware will pay a penalty if he signs up for part D now. Pt assures SW he will machine pecan picker his prescriptions from [facility] and can afford them. Pt lives home w/his 87 year old mother, pt states he and his mother are both independent. Pt uses a prosthetic for his right lower extremity. No homegoing needs are anticipated, SW available should any other needs arise. MEREDITH Park, BRIM GREASER OPERATOR
--- NOTE | 2017-12-22 13:39 | CASEMGMT ---
POA/LW forms not in echart. SW asked pt to bring them in should he end up in our hospital again, so we can have them on file. Pt states understanding. MEREDITH Park, CRUISE AGENT
== END 2017-12-22 13:52 | disposition home or self-care (01) | DRG 247 ==
LOC: ED 17:48 → PCU 18:14 → ICU 12-22 06:50 → PCU 12-22 06:52 → ICU 12-22 08:30
PROVIDERS: Hospitalist; Internal Medicine Cardiovascular Disease; Admitting Provider Family Medicine; Emergency Provider Emergency Medicine; Family Provider Family Medicine; PCP Family Medicine; Visit Provider Internal Medicine
DX: I21.4 Non-ST elevation (NSTEMI) myocardial infarction (principal); I25.110 Atherosclerotic heart disease of native coronary artery with unstable angina pectoris; I12.9 Hypertensive chronic kidney disease with stage 1 through stage 4 chronic kidney disease, or unspecified chronic kidney disease; N18.3 Chronic kidney disease, stage 3 (moderate); Z95.1 Presence of aortocoronary bypass graft; Z89.611 Acquired absence of right leg above knee; E78.5 Hyperlipidemia, unspecified; F17.210 Nicotine dependence, cigarettes, uncomplicated
CPT/HCPCS: 36415; 71045; 80048; 80061; 84484; 85025; 85027; 85347; 85610; 85730; 92928; 93005; 93459; 97162; 97166; 99283; 99406; J7030; Q9967; A4216; C1725; C1769; C1874; C1887; C1894; C9600

== ENCOUNTER → 2019-01-01 09:29 | Outpatient (CLI) | payer MEDICARE, SELFPAY ==
[2018-11-09 08:51] VITALS: BMI 29.2
[2019-01-01 10:55] LABS: AST(SGOT) 22 U/L (15-37); Alanine Aminotransfer ALT/SGPT 32 U/L (16-61); Albumin, Serum 3.6 g/dL (3.2-5.0); Alkaline Phosphatase 149 U/L (45-117); Bilirubin, Direct 0.13 mg/dL (0.00-0.30); Cholesterol 117 mg/dL (200); Globulin 4.1 g/dL (2.2-4.2); High Density Lipoprotein 38 mg/dL; Protein, Total 7.7 g/dL (6.4-8.2); Triglycerides 104 mg/dL; Very Low Density Lipoprotein 21 mg/dL (5-40)
== END ==
PROVIDERS: Family Provider Family Medicine; PCP Family Medicine; Referring Provider Internal Medicine Cardiovascular Disease; Visit Provider Internal Medicine Cardiovascular Disease
DX: I25.10 Atherosclerotic heart disease of native coronary artery without angina pectoris (principal); E78.5 Hyperlipidemia, unspecified
CPT/HCPCS: 36415; 80061; 80076

== ENCOUNTER 2023-04-28 07:48 | Emergency (ER) | payer MEDICARE, SELFPAY ==
[2023-04-28 07:49] VITALS: BP 151/97; PULSE 127; RESP 20; TEMP 36.6; O2SAT 98; BMI 29.5
--- NOTE | 2023-04-28 08:08 | RAD_ITS ---
STUDY: X-RAY CHEST REASON FOR EXAM: Male, 77 years old. 10 day history of increasing chest pain and shortness of breath. Weakness. TECHNIQUE: Single AP portable view of the chest. COMPARISON: Comparison is made with prior study dated December 20, 2017. FINDINGS: EKG electrodes are seen. Hyperinflation. The lungs are clear. There is no demonstrated pleural abnormality. Sternal cerclage wires and vascular clips are present from a prior sternotomy and coronary artery bypass graft procedure (CABG). Normal mediastinum and flako. Normal visualized pulmonary arteries. There is atherosclerotic tortuosity of the aortic arch and descending thoracic aorta. There are diffuse degenerative changes of the visualized thoracic spine. Normal visualized ribs, clavicles, and shoulders. There is no demonstrated abnormality of the visualized soft tissue structures of the upper abdomen. RAD/Chest 1 View (Portable) IMPRESSION: Hyperinflation. The lungs are clear. Electronically Signed: Emery Gerber MD at 8:44 EST ,
--- NOTE | 2023-04-28 08:08 | EKG12_ITS ---
Test Reason : SOB Blood Pressure : / mmHG Vent. Rate : 095 BPM Atrial Rate : 095 BPM P-R Int : 174 ms QRS Dur : 086 ms QT Int : 374 ms P-R-T Axes : 045 -45 119 degrees QTc Int : 469 ms Normal sinus rhythm Left anterior fascicular block ST & T wave abnormality, consider anterolateral ischemia Prolonged QT Abnormal ECG Confirmed by JANUARY JOVEL, KIRT ([id number]), assignment desk editor WILSON MOLINA ([id number]) on 05/02/2023 1:56:24 PM Referred By: Confirmed By:KIRT SIN MD
--- NOTE | 2023-04-28 08:09 | EDS_ITS ---
HPI History of Present Illness Chief Complaint: General Illness Informant: patient Onset/Context/Timing Onset: Weeks Narrative Narrative: Patient presents secondary to chest pain along with diarrhea and weakness. He states that since the first of the year he has had intermittent pressure-like chest pain over the lower sternal area that will come on a few seconds at a time and then resolved. He states he has also had difficulty eating. When asked further about this he states he can take a bite or 2 of a sandwich but it does not feel like it digest so that he does not want to eat. He had very little intake since the first of the year. He reports having diarrhea since the first that initially was brown in color and then turned to black. He denies abdominal pain. No fever or chills. [facility] Medical History (Updated 04/28/23 @ 13:[address] 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 Chest pain Chronic infection of right knee Essential (primary) hypertension History of non-ST elevation myocardial infarction (NSTEMI) (12/21/17) Lumbar disc disease Major depression Non-STEMI (non-ST elevated myocardial infarction) Tobacco abuse Unstable angina Home Medications metoprolol tartrate 25 mg tablet 25 mg PO BID heart, blood pressure 12/20/17 [History Last Taken 12/19/17] aspirin 81 mg chewable tablet 81 mg PO DAILY@0800 ##30 12/22/17 [Rx Last Taken Unknown] clopidogrel 75 mg tablet 75 mg PO DAILY #30 tabs 12/22/17 [Rx Last Taken Unknown] losartan 25 mg tablet 25 mg PO DAILY #90 tabs 03/28/18 [Rx Last Taken Unknown] atorvastatin 40 mg tablet 40 mg PO QHS #90 tabs 01/21/21 [Rx Last Taken Unknown] Allergy/AdvReac Type Severity Reaction Status Date / Time No Known Allergies Allergy Verified 04/28/23 07:49 Family History Father , age 82 Heart disease Surgical History History of back surgery History of right above knee amputation History of total right knee replacement Hx of CABG (2008) Stented coronary artery (12/21/17) Social History Smoking Status: Former smoker quit date: 12/25/17 alcohol intake: current alcohol intake frequency: a few times a month caffeine: Yes Type: coffee Number of servings: 1 ROS ROS ED Constitutional Constitutional ED: Denies chills or fever(s) Eyes Eyes: Denies discharge from eye(s) ENT ENT ED: Denies discharge from eye(s), rhinorrhea or sore throat Cardiovascular Cardiovascular: Reports chest pain; Denies palpitations Respiratory/Chest Respiratory/Chest: Reports dyspnea; Denies cough Gastrointestinal Gastrointestinal: Reports diarrhea; Denies abdominal pain or vomiting Genitourinary Genitourinary ED: Denies dysuria Musculoskeletal Musculoskeletal: Denies back pain or extremity pain Integumentary Denies Abrasions or rash Neurologic Neurologic: Reports weakness; Denies headache(s) Psychiatric Psychiatric: Denies anxiety or depression Allergic/Immunologic Allergic/Immunologic ED: Denies lip swelling or urticaria EXAM Physical Exam Const Vital Signs: 04/28/23 07:49 04/28/23 08:27 04/28/23 11:14 Temperature 97.8 F 99.8 F H Temperature Source Temporal Oral Pulse Rate 127 H 84 Respiratory Rate 20 H 16 Respiratory Pattern Normal Blood Pressure 151/97 H 132/78 H Blood Pressure Mean 115 96 Pulse Ox 98 96 Oxygen Delivery Method Room Air Room Air 04/28/23 13:31 Temperature Temperature Source Pulse Rate 79 Respiratory Rate 18 Respiratory Pattern Blood Pressure 147/85 H Blood Pressure Mean 105 Pulse Ox 98 Oxygen Delivery Method Room Air Positive well nourished and well developed General Appearance ED: well developed HEENT Reports dry mucous membranes Mouth ED: Yes dry mucous membranes Mouth: dry mucous membranes Chest Wall inspection of chest normal and palpation of chest normal Resp normal respiratory effort and clear to auscultation bilaterally Cardio regular rhythm Rate: tachycardic GI GI Narrative: Abdomen soft with no reproducible tenderness. Hypoactive bowel sounds. Extremity normal to inspection Neuro oriented x3 Neuro Narrative: No focal neurologic deficit. Skin no rashes or lesions noted MDM MDM MDM Narrative Medical decision making narrative: Patient placed on secured entrance monitor. EKG obtained to evaluate for cardiac arrhythmia/ischemia. Chest x-ray obtained to evaluate for acute lung pathology, cardiac size, or mediastinal abnormality. Labwork obtained to evaluate for leukocytosis, anemia, and electrolyte derangement. History & Record Review Discussion w/independent historian: Patient Lab Data Attestation: I reviewed the patient's lab results. Labs: Laboratory Results - last 24 hr 04/28/23 04/28/23 08:25 12:40 WBC 4.0 L RBC 5.17 Hgb 15.7 Hct 46.7 MCV 90.3 MCH 30.4 MCHC 33.6 RDW Std Deviation 42.7 RDW Coeff of Krissy 12.9 Plt Count 102 L MPV 12.1 H Immature Gran % (Auto) 0.500 Neut % (Auto) 67.7 Lymph % (Auto) 11.6 L [place] % (Auto) 20.0 H Eos % (Auto) 0.0 Baso % (Auto) 0.2 Absolute Neuts (auto) 2.7 Absolute Lymphs (auto) 0.47 L Nucleated RBC % 0 Differential Comment SCANNED Sodium 137 Potassium 3.7 Chloride 108 H Carbon Dioxide 19.0 L Anion Gap 10 BUN 25 H Creatinine 1.85 H Estim Creat Clear Calc 44.43 Est GFR (MDRD) Af Amer 46 L Est GFR (MDRD) Non-Af 38 L BUN/Creatinine Ratio 13.5 Glucose 127 H Calcium 8.7 Total Bilirubin 0.80 Direct Bilirubin 0.23 AST 23 ALT 22 Alkaline Phosphatase 94 Troponin I High Sens 21 Total Protein 7.2 Albumin 3.1 L Globulin 4.1 Lipase 34 Urine Color Yellow Urine Clarity Clear Urine pH 5.0 Ur Specific Melvin 1.010 Urine Protein 30 H Urine Glucose (UA) Normal Urine Ketones 5 H Urine Occult Blood 10 H Urine Nitrite Negative Urine Bilirubin Negative Urine Urobilinogen Normal Ur Leukocyte Esterase Negative Urine RBC 0 SEEN Urine WBC 0-5 SEEN Ur Squamous Epith Cells 0 SEEN Urine Bacteria 0 SEEN Urine Mucus 0 SEEN Radiography Chest X-Ray - ED: 1 View, Read by ED Physician and Chronic Changes Diagnostic Testing: Clinical Impression(s) from Imaging Studies Chest X-Ray 04/28/23 08:08 IMPRESSION: Hyperinflation. The lungs are clear. Electronically Signed: Emery Gerber MD at 8:44 EST , Abdomen/Pelvis CT 04/28/23 09:44 IMPRESSION: Scattered sigmoid diverticula. Fatty infiltration of the liver. Multiple bilateral nonobstructive intrarenal calculi as well as small bilateral renal cysts. Electronically Signed: Emery Gerber MD at 10:36 EST , EKG Initial EKG: Attestation: I personally reviewed and interpreted this EKG as follows: Interpretation: Sinus Rhythm (Sinus at 95 with left anterior fascicular block. Anterolateral T wave inversion. This is unchanged when compared to prior study from 2018.) Treatment and Re-Evaluation :: CBC reveals white count low at 4.0 with 67% neutrophils. Hemoglobin is normal at 15.7. Chemistry studies remarkable for BUN of 25 and a creatinine 1.85. This is only slightly elevated above his baseline. Glucose is 127. LFTs are unremarkable. Troponin is normal at 21. Urinalysis reveals no evidence of infection. Portable chest x-ray reveals hyperinflation with clear lungs. CT scan of the abdomen and pelvis with IV contrast reveals scattered diverticula and fatty infiltration of the liver. Multiple nonobstructive intrarenal calculi are noted. No acute findings. Swab for COVID is positive. Swab for influenza and RSV is negative. On repeat evaluation patient does feel improved. He is tolerating ice chips and water without difficulty. We discussed watching his oxygen saturation at home. He will continue supportive care. Discharge Plan Triage Chief Complaint: General Illness ED Provider: Omayra Aviles Dx/Rx/DC Orders Clinical Impression: COVID-19 Instructions: Coronavirus Disease 2019 (COVID-19): Overview, Coronavirus Disease 2019 (COVID-19): Caring for Yourself or Others Prescriptions: No Action losartan 25 mg tablet 25 mg PO DAILY Qty: 90 3RF metoprolol tartrate 25 MG tablet 25 mg PO BID clopidogrel 75 MG tablet 75 mg PO DAILY Qty: 30 0RF aspirin 81 MG tablet,chewable 81 mg PO DAILY@0800 Qty: 30 0RF atorvastatin 40 mg tablet 40 mg PO QHS Qty: 90 3RF Primary Care Provider: Carrie Arita Referrals: Capri Arita MD [Non-Staff] - Carrie Arita, [employer] [Primary Care Provider] - 1-2 Weeks Disposition Disposition: Home, Self Care
[2023-04-28] MEDS: 0.9% Normal Saline (1000mL) 1,000 ML 150 ML IV (08:24)
[2023-04-28 08:47] LABS: Absolute Lymphocyte Count 0.47 X10^3/uL (0.83-4.51); Absolute Neutrophil Count 2.7 X10^3/uL (2.0-7.7); Basophil# 0.01 X10^3/uL; Basophil% 0.2 % (0-1); Hematocrit 46.7 % (40-54); Hemoglobin 15.7 g/dL (13.0-16.5); Lymphocyte # 0.47 X10^3/ul (0.83-4.51); Lymphocyte % 11.6 % (19-41); Mean Corp Hgb Conc 33.6 g/dL (32-36); Mean Corpuscular Hgb 30.4 pg (27.0-32.0); Mean Corpuscular Volume 90.3 fL (80-94); Mean Platelet Vol. 12.1 fl (6.2-12.0); Monocyte# 0.81 X10^3/uL; NRBC Flagged by Analyzer 0 % (0-5); Neutrophil # 2.73 X10^3/uL (2.7-7.7); Neutrophil % 67.7 % (47-70); POSITIVE DIFFERENTIAL YES; Platelet Count 102 K/mm3 (150-450); RBC Distribution Width CV 12.9 % (11.6-14.6); RBC Distribution Width SD 42.7 fl (35.1-43.9); Red Blood Count 5.17 M/mm3 (4.6-6.2)
[2023-04-28 08:48] LABS: Differential Indicated SCAN CRITERIA MET
[2023-04-28 09:06] LABS: AST(SGOT) 23 U/L (15-37); Alanine Aminotransfer ALT/SGPT 22 U/L (16-61); Albumin, Serum 3.1 g/dL (3.2-5.0); Alkaline Phosphatase 94 U/L (45-117); Anion Gap 10 (5-15); BUN 25 mg/dL (7-18); BUN/Creat Ratio 13.5 RATIO (10-20); Bilirubin, Direct 0.23 mg/dL (0.00-0.30); Calcium,Total 8.7 mg/dL (8.5-10.1); Chloride 108 mmol/L (98-107); Creatinine, Serum 1.85 mg/dL (0.70-1.30); EST Glomerular Filtration Rate 38 mL/min (>60); Est Glom Filt Rate - Afr Amer 46 mL/min (>60); Estimated Creatinine Clearance 44.43 ml/min; Globulin 4.1 g/dL (2.2-4.2); Glucose 127 mg/dL (74-106); Lipase 34 U/L (13-75); Potassium 3.7 mmol/L (3.5-5.1); Protein, Total 7.2 g/dL (6.4-8.2); Sodium Level 137 mmol/L (136-145); Troponin-I HS 21 pg/mL (3.0-78.0)
[2023-04-28 09:20] LABS: Differential Comment SCANNED
--- NOTE | 2023-04-28 09:44 | CT_ITS ---
STUDY: CT ABDOMEN AND PELVIS WITH CONTRAST REASON FOR EXAM: Male, 77 years old. 10 day history of epigastric pain with weakness and black stools. RADIATION DOSAGE (If Supplied By Facility): CTDIvol = ( 19.93 ) mGy, DLP = ( 1242.31 ) mGycm TECHNIQUE: Transaxial images were obtained from the dome of the diaphragm to the symphysis pubis without oral contrast. isovue 300 100 ml was administered. Sagittal and coronal images were reconstructed. Individualized dose optimization techniques were used for this CT. COMPARISON: None. FINDINGS: Minimal increased markings in the left lung base abutting the lateral aspect of the left major fissure. Mild degree of increased markings are also seen at the right lung base in the posterior aspect of the right middle lobe abutting the right major fissure suggestive of atelectasis. Coronary artery calcification. There is decreased attenuation of the liver consistent with steatosis. Normal gallbladder and extrahepatic biliary system. Normal spleen. Normal pancreas. Normal bilateral adrenal glands. Multiple bilateral nonobstructive intrarenal calculi. Small bilateral renal cysts. There is a small hiatal hernia. Normal small intestine. There are scattered colonic diverticula consistent with diverticulosis. The appendix is visualized and appears normal. There is diffuse atherosclerotic calcification of the abdominal aorta and its major visceral branches, without a demonstrated aneurysm. Normal inferior vena cava. Normal retroperitoneum. Normal urinary bladder. Normal abdominal wall. There are diffuse degenerative changes of the visualized lumbar spine. CT/Abdomen/Pelvis W IV Cont ONLY IMPRESSION: Scattered sigmoid diverticula. Fatty infiltration of the liver. Multiple bilateral nonobstructive intrarenal calculi as well as small bilateral renal cysts. Electronically Signed: Emery Gerber MD at 10:36 EST ,
[2023-04-28 11:14] VITALS: BP 132/78; PULSE 84; RESP 16; TEMP 37.7; O2SAT 96
[2023-04-28 12:45] LABS: Bacteria 0 SEEN /hpf (None Seen); Mucous, Urine 0 SEEN /hpf (<or=2+); Red Blood Cells-Urine 0 SEEN /hpf (0-5); Squamous Epithelial Cells - UA 0 SEEN /hpf (0-5)
[2023-04-28 13:11] LABS: Color, Urine Yellow (Yellow); Glucose, Dipstick Normal (Normal); Ketone-Dipstick 5 mg/dl (Negative); Leukocyte Esterase-Dipstick Negative /ul (Negative); Nitrite-Dipstick Negative (Negative); Occult Blood-Urine 10 /ul (Negative); Protein-Dipstick 30 mg/dl (Negative); Urine Bilirubin Dipstick Negative (Negative); Urine Clarity Clear (Clear); Urine Urobilinogen Normal (Normal)
[2023-04-28 13:22] LABS: White Blood Cells 0-5 SEEN /hpf (0-5)
[2023-04-28 13:31] VITALS: BP 147/85; PULSE 79; RESP 18; O2SAT 98
[2023-04-29 09:58] LABS: Pathologist Review Reviewed
== END 2023-04-28 13:51 | disposition home or self-care (01) ==
PROVIDERS: Emergency Provider Emergency Medicine; PCP Nurse Practitioner Family; Visit Provider Emergency Medicine
DX: U07.1 COVID-19 (principal); Z87.891 Personal history of nicotine dependence; I25.10 Atherosclerotic heart disease of native coronary artery without angina pectoris; I10 Essential (primary) hypertension; I25.2 Old myocardial infarction; I5A Non-ischemic myocardial injury (non-traumatic); Z79.899 Other long term (current) drug therapy; Z79.82 Long term (current) use of aspirin; Z79.02 Long term (current) use of antithrombotics/antiplatelets; Z95.5 Presence of coronary angioplasty implant and graft
CPT/HCPCS: 71045; 74177; 80048; 80076; 81001; 83690; 84484; 85025; 87631; 93005; 96360; 96361; 99283; J7030; Q9967; A4216